=== PATIENT | female | born 1970 | race Caucasian/White ===

== ENCOUNTER 2017-10-13 14:34 | Emergency (ER) | payer BC ==
[2017-10-13 14:40] VITALS: BP 162/83; PULSE 77; RESP 16; TEMP 97.8; O2SAT 99
--- NOTE | 2017-10-13 15:29 | RADRPT ---
EXAM DATE/TIME: 10/13/2017 15:14 [place] COMPARISON: No previous studies available for comparison. INDICATIONS : Chest pain, short of breath. MEDICAL HISTORY : burning urination, frequent. pneumonia recent, asthma SURGICAL HISTORY : None. ENCOUNTER: Initial ACUITY: 1 day PAIN SCORE: 7/10 LOCATION: Bilateral chest FINDINGS: PA and lateral views of the chest demonstrate the lungs to be symmetrically aerated without evidence of mass, infiltrate or effusion. The cardiomediastinal contours are unremarkable. Osseous structure s are intact. CONCLUSION: 1. No acute cardiopulmonary disease. Teddy Menchaca MD on October 13, 2017 at 15:27 Board Certified Radiologist. This report was verified electronically.
--- NOTE | 2017-10-13 16:15 | PD ---
HPI Chief Complaint: Cardiac Complaint Time Seen by Provider: 16:14 Travel History International Travel<30 days: No Contact w/Intl Traveler<30days: No Traveled to known affect area: No History of Present Illness HPI 46-year-old female with history of hypertension hypercholesterolemia, presents emergency department for evaluation of a chest pain, reproducible with movement and palpation that began today. Patient does not recall any injury. She does not recall any new activities or exercises. She has not lifted anything heavy. She denies any shortness of breath. She has no nausea, vomiting, lightheaded sensation, or diaphoresis. She has no other symptoms to report. PFSH Past Medical History Hypertension: Yes Social History Tobacco Use: No Allergies-Medications (Allergen,Severity, Reaction): Coded Allergies: NSAIDS (Non-Steroidal Anti-Inflamma (Verified Allergy, Unknown, 10/13/17) Sulfa (Sulfonamide Antibiotics) (Verified Allergy, Unknown, 10/13/17) azithromycin (Verified Allergy, Unknown, 10/13/17) Reported Meds & Prescriptions Reported Meds & Active Scripts Active Reported Buspirone (Buspirone HCl) 10 Mg Tab 10 Mg PO TID Advair Diskus Inh (Fluticasone-Salmeterol Inh) 250-50 Mcg/Blist Aer 1 Puff INH BID Rinse mouth after use. Proair Hfa 8.5 GM Inh (Albuterol Sulfate) 90 Mcg/Act Aer 2 Puff INH Q6H PRN 108 mcg/actuation Singulair (Montelukast Sodium) 10 Mg Tab 10 Mg PO HS Pravastatin 10 Mg Tab 10 Mg PO HS Adderall (Amphetamine-Dextroamphetamine) 10 Mg Tab 10 Mg PO DAILY Avoid late evening doses. Space doses at least 4 to 6 hours if more than once/day dosing. Norvasc (Amlodipine Besylate) 5 Mg Tab 5 Mg PO DAILY Lisinopril 5 Mg Tab 5 Mg PO DAILY Review of Systems Except as stated in HPI: all other systems reviewed are Neg Physical Exam Narrative GENERAL: Obese female patient, in no acute distress. SKIN: Focused skin assessment warm/dry. HEAD: Atraumatic. Normocephalic. EYES: Pupils equal and round. No scleral icterus. No injection or drainage. ENT: No nasal bleeding or discharge. Mucous membranes pink and moist. NECK: Trachea midline. No JVD. CARDIOVASCULAR: Regular rate and rhythm. No murmur appreciated. RESPIRATORY: No accessory muscle use. Diminished, likely due to girth breath sounds equal bilaterally. Tenderness elicited palpation over the anterior chest wall. No crepitus. No deformity. GASTROINTESTINAL: Abdomen soft, non-tender, nondistended. Hepatic and splenic margins not palpable. MUSCULOSKELETAL: No obvious deformities. No clubbing. No cyanosis. No edema. NEUROLOGICAL: Awake and alert. No obvious cranial nerve deficits. Motor grossly within normal limits. Normal speech. PSYCHIATRIC: Appropriate mood and affect; insight and judgment normal. Data Data Last Documented VS Vital Signs Date Time Temp Pulse Resp B/P (MAP) Pulse Ox O2 Delivery O2 Flow Rate FiO2 10/13/17 16:23 78 18 98 Room Air 10/13/17 16:23 137/65 (89) 10/13/17 14:40 97.8 Orders Orders Complete Blood Count With Diff (10/13/17 14:42) Basic Metabolic Panel (Bmp) (10/13/17 14:42) Act Partial Throm Time (Ptt) (10/13/17 14:42) Prothrombin Time / Inr (Pt) (10/13/17 14:42) Electrocardiogram (10/13/17 ) Chest, Pa & Lat (10/13/17 ) Urinalysis - C+S If Indicated (10/13/17 14:42) Dexamethasone Inj (Decadron Inj) (10/13/17 16:45) Sodium Chlor 0.9% 1000 Ml Inj (Ns 1000 M (10/13/17 16:45) Cath For Specimen (10/13/17 17:32) Ed Discharge Order (10/13/17 18:18) Labs Laboratory Tests Test 10/13/17 13:33 10/13/17 17:42 White Blood Count 7.3 TH/MM3 Red Blood Count 4.16 MIL/MM3 Hemoglobin 13.1 GM/DL Hematocrit 38.4 % Mean Corpuscular Volume 92.2 FL Mean Corpuscular Hemoglobin 31.3 PG Mean Corpuscular Hemoglobin Concent 34.0 % Red Cell Distribution Width 12.7 % Platelet Count 277 TH/MM3 Mean Platelet Volume 9.0 FL Neutrophils (%) (Auto) 74.2 % Lymphocytes (%) (Auto) 18.2 % Monocytes (%) (Auto) 5.3 % Eosinophils (%) (Auto) 1.8 % Basophils (%) (Auto) 0.5 % Neutrophils # (Auto) 5.4 TH/MM3 Lymphocytes # (Auto) 1.3 TH/MM3 Monocytes # (Auto) 0.4 TH/MM3 Eosinophils # (Auto) 0.1 TH/MM3 Basophils # (Auto) 0.0 TH/MM3 CBC Comment DIFF FINAL Differential Comment Prothrombin Time 10.3 SEC Prothromb Time International Ratio 1.0 RATIO Activated Partial Thromboplast Time 25.6 SEC Blood Urea Nitrogen 11 MG/DL Creatinine 0.94 MG/DL Random Glucose 91 MG/DL Calcium Level 8.9 MG/DL Sodium Level 140 MEQ/L Potassium Level 4.1 MEQ/L Chloride Level 106 MEQ/L Carbon Dioxide Level 25.1 MEQ/L Anion Gap 9 MEQ/L Estimat Glomerular Filtration Rate 64 ML/MIN Urine Color YELLOW Urine Turbidity HAZY Urine pH 7.0 Urine Specific [place] 1.018 Urine Protein TRACE mg/dL Urine Glucose (UA) NEG mg/dL Urine Ketones NEG mg/dL Urine Occult Blood NEG Urine Nitrite NEG Urine Bilirubin NEG Urine Urobilinogen LESS THAN 2.0 MG/DL Urine Leukocyte Esterase LARGE Urine RBC LESS THAN 1 /hpf Urine WBC 6 /hpf Urine Squamous Epithelial Cells 4 /hpf Urine Amorphous Sediment RARE Urine Bacteria FEW /hpf Microscopic Urinalysis Comment CULT NOT INDICATED MDM Medical Decision Making Medical Screen Exam Complete: Yes Emergency Medical Condition: Yes Medical Record Reviewed: Yes Differential Diagnosis Chest wall pain versus pleuritic pain versus contusion versus muscle strain versus spasm Narrative Course 46-year-old female presents emergency department for evaluation of anterior chest wall pain, reproducible with movement and palpation. Patient appears without distress. Her vital signs are stable. The pain is reproducible on the anterior chest. There is no crepitus. No erythema. Patient does have even respirations. Patient is given IV Decadron. Laboratory Tests Test 10/13/17 13:33 10/13/17 17:42 White Blood Count 7.3 TH/MM3 Red Blood Count 4.16 MIL/MM3 Hemoglobin 13.1 GM/DL Hematocrit 38.4 % Mean Corpuscular Volume 92.2 FL Mean Corpuscular Hemoglobin 31.3 PG Mean Corpuscular Hemoglobin Concent 34.0 % Red Cell Distribution Width 12.7 % Platelet Count 277 TH/MM3 Mean Platelet Volume 9.0 FL Neutrophils (%) (Auto) 74.2 % Lymphocytes (%) (Auto) 18.2 % Monocytes (%) (Auto) 5.3 % Eosinophils (%) (Auto) 1.8 % Basophils (%) (Auto) 0.5 % Neutrophils # (Auto) 5.4 TH/MM3 Lymphocytes # (Auto) 1.3 TH/MM3 Monocytes # (Auto) 0.4 TH/MM3 Eosinophils # (Auto) 0.1 TH/MM3 Basophils # (Auto) 0.0 TH/MM3 CBC Comment DIFF FINAL Differential Comment Prothrombin Time 10.3 SEC Prothromb Time International Ratio 1.0 RATIO Activated Partial Thromboplast Time 25.6 SEC Blood Urea Nitrogen 11 MG/DL Creatinine 0.94 MG/DL Random Glucose 91 MG/DL Calcium Level 8.9 MG/DL Sodium Level 140 MEQ/L Potassium Level 4.1 MEQ/L Chloride Level 106 MEQ/L Carbon Dioxide Level 25.1 MEQ/L Anion Gap 9 MEQ/L Estimat Glomerular Filtration Rate 64 ML/MIN Urine Color YELLOW Urine Turbidity HAZY Urine pH 7.0 Urine Specific [place] 1.018 Urine Protein TRACE mg/dL Urine Glucose (UA) NEG mg/dL Urine Ketones NEG mg/dL Urine Occult Blood NEG Urine Nitrite NEG Urine Bilirubin NEG Urine Urobilinogen LESS THAN 2.0 MG/DL Urine Leukocyte Esterase LARGE Urine RBC LESS THAN 1 /hpf Urine WBC 6 /hpf Urine Squamous Epithelial Cells 4 /hpf Urine Amorphous Sediment RARE Urine Bacteria FEW /hpf Microscopic Urinalysis Comment CULT NOT INDICATED Last Impressions Chest X-Ray 10/13/17 0000 Signed Impressions: Service Date/Time: September 15:14 - CONCLUSION: 1. No acute cardiopulmonary disease. Teddy Menchaca MD Findings are reviewed with the patient. I discussed the patient my attending physician. Patient will be discharged home to follow-up with a primary care provider. She agrees to return immediately with acute worsening of symptoms. Diagnosis Primary Impression: Chest wall pain Referrals: Primary Care Physician Patient Instructions: Chest Wall Pain (ED), General Instructions Additional Instructions: Tylenol as directed on the package as needed for pain Follow-up with a primary care provider Return immediately with acute worsening symptoms Med/Other Pt SpecificInfo: No Change to Meds Disposition: 01 DISCHARGE HOME Condition: Stable Kimi Alvarado October 13, 2017 16:15
[2017-10-13 16:23] VITALS: BP 137/65; PULSE 80; RESP 18; O2SAT 98
[2017-10-13 16:37] LABS: AUTOMATED NEUTROPHIL # 5.4 TH/MM3 (1.8-7.7); BASOPHIL % 0.5 % (0.0-2.0); EOSINOPHIL # 0.1 TH/MM3 (0-0.4); EOSINOPHIL % 1.8 % (0.0-4.0); HEMATOCRIT 38.4 % (35.0-46.0); HEMOGLOBIN 13.1 GM/DL (11.6-15.3); LYMPH % 18.2 % (9.0-44.0); LYMPHOCYTE # 1.3 TH/MM3 (1.0-4.8); MEAN CELL VOLUME 92.2 FL (80.0-100.0); MEAN CORPUSCULAR HEMOGLOBIN 31.3 PG (27.0-34.0); MONO % 5.3 % (0.0-8.0); MONOCYTE # 0.4 TH/MM3 (0-0.9); NEUT % 74.2 % (16.0-70.0); PLATELET COUNT 277 TH/MM3 (150-450); RED BLOOD COUNT 4.16 MIL/MM3 (4.00-5.30); RED CELL DISTRIBUTION WIDTH 12.7 % (11.6-17.2); WHITE BLOOD COUNT 7.3 TH/MM3 (4.0-11.0)
[2017-10-13] MEDS ORDERED: DEXAMETHASONE SOD PHOS 4 MG/ML VIAL IV PUSH ONE (16:45)
[2017-10-13] MEDS ORDERED: SODIUM CHLOR 0.9% 1000 ML INJ 1,000 ML IV ONE (16:45)
[2017-10-13 16:54] LABS: PROTHROMBIN TIME - PATIENT 10.3 SEC (9.8-11.6)
[2017-10-13 17:02] LABS: BICARBONATE 25.1 MEQ/L (21.0-32.0); CALCIUM 8.9 MG/DL (8.5-10.1); CREATININE 0.94 MG/DL (0.50-1.00)
[2017-10-13] MEDS ORDERED: LISI-519 PO (17:27)
[2017-10-13] MEDS ORDERED: AMLO5 PO (17:27)
[2017-10-13] MEDS ORDERED: PRAV10TA PO (17:27)
[2017-10-13] MEDS ORDERED: MONT10TA2 PO (17:27)
[2017-10-13] MEDS ORDERED: ADDE10 PO (17:27)
[2017-10-13] MEDS ORDERED: BUSP10TA PO (17:27)
[2017-10-13] MEDS ORDERED: ADVA250A INH (17:27)
[2017-10-13] MEDS ORDERED: ALBUAER3 INH (17:27)
[2017-10-13 18:15] LABS: AMORPHOUS SEDIMENT, URINE RARE; BACTERIA, URINE FEW /hpf; BILIRUBIN, URINE NEG (NEG); BLOOD, URINE NEG (NEG); GLUCOSE,URINE NEG (NEG); KETONE, URINE NEG (NEG); NITRITE,URINE NEG (NEG); SQUAMOUS EPITHELIAL CELL URINE 4 /hpf (0-5); URINE COLOR YELLOW (YELLW/STRAW); URINE LEUKOCYTE ESTERASE LARGE (NEG)
--- NOTE | 2017-10-14 12:22 | EKG ---
Date Performed: 10/13/2017 Time Performed: 16:43:14 PTAGE: 46 years EKG: Sinus rhythm WITH SHORT ID INTERVAL NONSPECIFIC T-WAVE ABNORMALITY BORDERLINE ECG NO PREVIOUS TRACING DOCTOR: Otoniel Marin Interpretating Date/Time 10/14/2017 12:19:58
== END 2017-10-13 19:18 | disposition home or self-care (01) ==
LOC: NEPE 14:34
DX: R07.89 Other chest pain (principal); I10 Essential (primary) hypertension
CPT/HCPCS: 71046; 80048; 81001; 85025; 85610; 85730; 93005; 96374; 99285; J1100; J7030